=== PATIENT | female | born 1960 ===

== ENCOUNTER 2017-03-21 17:15 | Emergency (ER) | payer BC ==
[2017-03-21 17:30] VITALS: O2SAT 99
[2017-03-21] MEDS ORDERED: Bacitracin 500 Units/gm Oint Foilpak UD ONE (17:40)
[2017-03-21] MEDS ORDERED: Lidocaine 2% Inj (20ml) ONE (18:24)
--- NOTE | 2017-03-21 18:42 | C.PDOC ---
History Of Present Illness 56 year old female presents to the ED for evaluation of left wrist laceration that occurred at home [employer]. Patient reports she was cooking with a knife when she suffered the laceration. Otherwise, Patient denies deformity, weakness, numbness, sensory deficits of extremities, neurovascular deficits. Time Seen by Provider: 03/21/17 18:15 Chief Complaint (Nursing): Abnormal Skin Integrity History Per: Patient History/Exam Limitations: no limitations Onset/Duration Of Symptoms: Hrs Current Symptoms Are (Timing): Still Present Location Of Injury: Right: Hand (wrist), Anterior: Hand Quality Of Symptoms: Painful Recent travel outside of the [place]: No Additional History Per: Patient Past Medical History Reviewed: Historical Data, Nursing Documentation, Vital Signs Vital Signs: Last Vital Signs Temp 97.6 F 03/21/17 19:19 Pulse 64 03/21/17 19:19 Resp 16 03/21/17 19:19 BP 114/64 03/21/17 19:19 Pulse Ox 99 03/21/17 19:19 - Medical History PMH: No Chronic Diseases Surgical History: No Surg Hx Family History: States: Unknown Family Hx - Social History Hx Alcohol Use: No Hx Substance Use: No - Immunization History Hx Tetanus Toxoid Vaccination: No Hx Influenza Vaccination: No Hx Pneumococcal Vaccination: No Review Of Systems Constitutional: Negative for: Fever, Chills Cardiovascular: Negative for: Chest Pain Respiratory: Negative for: Cough, Shortness of Breath Gastrointestinal: Negative for: Nausea, Vomiting, Abdominal Pain Musculoskeletal: Positive for: Hand Pain Skin: Positive for: Other (laceration). Negative for: Rash Neurological: Negative for: Weakness, Numbness Physical Exam - Physical Exam Appears: No Acute Distress Skin: Normal Color, Warm, Other ((+)linear cutaneous laceration 3 cm length over dorsal /ulnar aspect Left wrist, mild blood oozing. No deformity, no wound FB.) Extremity: Normal ROM (Left wrist, no neurovascuar deficist distally to injury.) , No Tenderness, No Deformity, No Swelling Neurological/Psych: Oriented x3, Normal Speech, Normal Motor, Normal Sensation, Normal Reflexes ED Course And Treatment O2 Sat by Pulse Oximetry: 99 Progress Note: On re-eval, pt is afebrile, hemodynamicalys table. non-toxic. Left wrist: laceration repaired w/sutures. FAROM, no neuorvascular deficits. tetanus given. Pt advised on wound care. ref. to f/u with PMD in 2-3 days for re-eavl. return if any sign of infection. Laceration - Laceration Repair LEFT WRIST Wound Length (In cm): 3CM Description Of Wound: Linear Anesthesia: Lidocaine 2% Wound Examination: Irrigated With Saline, No FB With Wound Exploration, No Tendon Injury With Wound Exploration Wound Closure: Suture (#6) Suture Technique And Material Used: Interrupted, Nylon (4-0) Wound Complexity: Simple Disposition - Disposition Disposition: HOME/ ROUTINE Disposition Time: 18:39 Condition: STABLE Additional Instructions: CLEAN WOUND DAILY WITH PEROXIDE SUTURE REMOVAL IN 7-10 DAYS LIGHT DUTY TO INJURED HAND FOLLOW UP WITH PMD IN 2 DAYS FOR WOUND CHECK. RETURN TO ED IF ANY SIGN OF INFECTION. 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 - Scribe Statement The provider has reviewed the documentation as recorded by the Scribe Mark Allen All medical record entries made by the Scribe were at my direction and personally dictated by me. I have reviewed the chart and agree that the record accurately reflects my personal performance of the history, physical exam, medical decision making, and the department course for this patient. I have also personally directed, reviewed, and agree with the discharge instructions and disposition.
[2017-03-21] MEDS ORDERED: Tetanus/Diphtheria Toxoids 0.5 ml Syringe IM ONE ×2 (18:44→18:57)
[2017-03-21 19:21] VITALS: BP 114/64; PULSE 64; RESP 16; TEMP 97.6
== END 2017-03-21 19:20 | disposition home or self-care (01) ==
LOC: C.ER 17:15
DX: S61.512A Laceration without foreign body of left wrist, initial encounter (principal); W26.0XXA Contact with knife, initial encounter; Y93.G3 Activity, cooking and baking; Z23 Encounter for immunization